=== PATIENT | male | born 1950 | race Caucasian/White ===

== ENCOUNTER 2018-04-11 08:10 | Emergency (ER) | payer OTHER ==
[~2018-04-11] VITALS: Ht 182.9 cm; Wt 75.3 kg
[2018-04-11 08:15] VITALS: BP_SYST 168
--- NOTE | 2018-04-11 08:22 | NUR ---
Patient to ER bed 4 to gown for evaluation. Side rails up. Report given to Ritesh STEINBERG.
--- NOTE | 2018-04-11 08:35 | NUR ---
ER Dr. OBRIEN at bedside examining patient.
[2018-04-11 08:46] LABS: BASOPHILS # (AUTO) 0.1 K/uL (0.0-0.2); BASOPHILS % (AUTO) 1.7 % (0.0-2.0); EOSINOPHILS % (AUTO) 0.2 % (0.0-4.0); HEMATOCRIT 47.3 % (36-54); HEMOGLOBIN 15.7 g/dL (14.0-18.0); MEAN CORPUSCULAR HEMOGLOBIN 33 pg (27-31); MEAN CORPUSCULAR HGB CONC 33 % (32-36); MEAN CORPUSCULAR VOLUME 101 fL (79.0-98.0); MONOCYTES # (AUTO) 0.2 K/uL (0.0-1.0); MONOCYTES % (AUTO) 2.3 % (1.7-9.3); NEUTROPHILS # (AUTO) 6.4 K/uL (1.8-7.7); NEUTROPHILS % (AUTO) 82.8 % (40.0-70.0); PLATELET COUNT (AUTO) 258 K/uL (130-430); RED BLOOD CELL COUNT(AUTO) 4.69 MIL/uL (4.2-6.2); RED CELL DISTRIBUTION WIDTH 12.1 % (9.0-15.0); WHITE BLOOD COUNT (AUTO) 7.7 K/uL (4.8-10.8)
--- NOTE | 2018-04-11 08:50 | NUR ---
Patient transported to radiology via WHEELCHAIR, accompanied by RADIOLOGY STAFF.
--- NOTE | 2018-04-11 09:00 | NUR ---
Returned from radiology, back to [facility]. PATIENT IN GOOD CONDITION. NO ACUTE DISTRESS.
[2018-04-11 09:03] LABS: CALCIUM 9.3 mg/dL (8.4-11.0); CREATININE 1.48 mg/dL (0.55-1.30)
--- NOTE | 2018-04-11 09:05 | NUR ---
PATIENT SITTING UP ON BED. AAOX4. RESPIRATIONS EVEN AND UNLABORED. DENIES OF ANY CHEST PAIN OR SOB. PT IN NO ACUTE DISTRESS. MID ABDOMINAL PAIN = 4/10 AT THIS TIME; TOLERABLE VERBALIZED. NO OBJECTIVE S/SX OF PAIN OBSERVED. PT DENIES THE NEED FOR ANY PAIN MEDICTIONS. PT IN GOOD CONDITION. AWAITING LAB RESULTS. WILL CONTINUE TO MONITOR.
[2018-04-11 09:07] LABS: ALBUMIN 4.2 g/dL (3.4-4.8); TOTAL BILIRUBIN 0.4 mg/dL (0.0-1.0)
[2018-04-11 09:08] LABS: PROTHROMBIN TIME 10.6 SECS (9.5-12.5)
[2018-04-11 09:19] LABS: BILIRUBIN,URINE NEGATIVE (NEGATIVE); BLOOD, URINE 3+ (NEGATIVE); CLARITY/URINE CLEAR (CLEAR); COLOR,URINE YELLOW (YELLOW); GLUCOSE,URINE NEGATIVE (NEGATIVE); KETONES,URINE TRACE (NEGATIVE); LEUKOCYTE ESTERASE ,URINE NEGATIVE (NEGATIVE); NITRITE, URINE NEGATIVE (NEGATIVE); PROTEIN URINE TRACE (NEGATIVE); UROBILINOGEN,URINE 0.2 (0.2-1.0)
[2018-04-11 09:29] LABS: BACTERIA,URINE FEW /HPF (None Seen); MUCUS,URINE 1+ /LPF (None Seen); RBC,URINE 20-50 /HPF (0-3); WBC,URINE 0-3 /HPF (0-3)
[2018-04-11 09:45] VITALS: BP_SYST 126
--- NOTE | 2018-04-11 09:45 | NUR ---
Patient given written and verbal discharge instructions and verbalizes understanding. ER MD discussed with patient the results and treatment provided. Patient in stable condition. ID arm band removed. Rx of NORCO, FLOMAX, AND IBUPROFEN given. Patient educated on pain management and to follow up with PMD. Pain Scale 7/10; PAIN TOLERABLE VERBALIZED. NO OBJECTIVE S/SX OF PAIN OBSERVED. Opportunity for questions provided and answered. Medication side effect fact sheet provided. PATIENT IN GOOD CONDITION AND IN NO ACUTE DISTRESS. PT NOTED WITH A STEADY GAIT.
== END 2018-04-11 09:45 | disposition home or self-care (01) ==
LOC: SED 08:10
DX: K80.20 Calculus of gallbladder without cholecystitis without obstruction (principal); N23 Unspecified renal colic
CPT/HCPCS: 36415; 80053; 81000-TC; 82150-TC; 83690-TC; 85025; 85610-TC; 85730-TC; 99284